=== PATIENT | male | born 1955 | race Caucasian/White ===

== ENCOUNTER 2018-12-11 07:47 | Day surgery (SDC) | payer MEDICAID ==
[2018-12-11] MEDS ORDERED: Lactated Ringers 1,000 ML IV SCH (08:15)
[2018-12-11] MEDS ORDERED: Propofol 200 MG/20 ML SDV ONE ×2 (08:52→09:49)
[2018-12-11] MEDS ORDERED: fentaNYL 100 MCG/2 ML SDV ONE (08:53)
[2018-12-11] MEDS ORDERED: Midazolam 1 MG/ML 2 ML SDV ONE (08:53)
--- NOTE | 2018-12-11 11:14 | OR ---
DATE OF PROCEDURE: 12/11/2018 PREOPERATIVE DIAGNOSES: 1. Abdominal pain. 2. Change in bowel habits. 3. Blood in stool. POSTOPERATIVE DIAGNOSES: 1. Abdominal pain. 2. Change in bowel habits. 3. Blood in stool. 4. Gastroesophageal reflux disease, mild gastritis. 5. Diverticulosis. 6. Melanosis coli. 7. Hemorrhoids. PROCEDURE: 1. Esophagogastroduodenoscopy with antral biopsies for CLOtest, sent for pathology to look for Helicobacter pylori, biopsy of gastroesophageal junction. 2. Colonoscopy to the cecum. SURGEON: Tung Sen MD ANESTHESIA: IV anesthesia with monitored anesthesia care. INDICATION: This is a 63-year-old white male who is referred for upper and lower endoscopies. Indications for these include abdominal pain, blood in stool, and change in bowel habits. I counseled him for upper and lower endoscopy with possible biopsy including risks and alternatives, and he gave his informed consent to proceed. DESCRIPTION OF PROCEDURE: The patient was placed in the left lateral decubitus position. IV anesthesia was administered by the Anesthesia Service. Time-out was held. The flexible video Olympus upper endoscope was passed through his mouth, down his esophagus and into his stomach. The scope was easily passed through the pylorus into the duodenum reaching its third portion. The scope was then slowly withdrawn examining the mucosa throughout. The duodenal mucosa appeared unremarkable. The scope was brought back through the pylorus into the antrum. There was a fine erythema here suggestive of mild gastritis. The scope was retroflexed. The proximal stomach appeared unremarkable. The scope was straightened. We obtained antral biopsies for CLOtest and for pathology to look for Helicobacter pylori. The scope was then brought up through the GE junction. This was abnormal in that the Z-line was not straight with fingers of gastric mucosa going proximally up into the esophagus. We obtained multiple totalling at least 6 biopsies of the gastroesophageal junction. The scope was then brought proximally up through the remainder of the esophagus which otherwise appeared unremarkable and it was removed. Next, a rectal exam was performed, which was unremarkable. The flexible video Olympus colonoscope was introduced through his anus, up his rectum, and out his colon all the way to the cecum. En route, we saw multiple left-sided diverticula. There was no bleeding or inflammation associated with any of them. Once the cecum was reached, the scope was slowly withdrawn examining the mucosa throughout. No additional mucosal abnormalities were noted. The scope was retroflexed in the rectum with the distal rectum showing some fairly prominent hemorrhoids, which is probably etiology of his blood in stool. The scope was straightened and removed. He tolerated the procedure well. Tung Sen MD /[id number] MTDD
== END 2018-12-11 11:45 | disposition home or self-care (01) ==
LOC: JP.SDS 07:47
PROVIDERS: ATTEND Surgery
DX: K29.71 Gastritis, unspecified, with bleeding (principal); K57.31 Diverticulosis of large intestine without perforation or abscess with bleeding; R19.4 Change in bowel habit; K21.0 Gastro-esophageal reflux disease with esophagitis; K63.89 Other specified diseases of intestine; K64.9 Unspecified hemorrhoids; F17.210 Nicotine dependence, cigarettes, uncomplicated
CPT/HCPCS: 43239; 45378; 87081; 88305; J2250; J2704; J3010; J7120

== ENCOUNTER 2020-03-30 05:58 | Day surgery (SDC) | payer MEDICAID ==
[2020-03-30] MEDS ORDERED: Propofol 200 MG/20 ML SDV ONE (07:07)
[2020-03-30] MEDS ORDERED: fentaNYL 100 MCG/2 ML SDV ONE (07:08)
[2020-03-30] MEDS ORDERED: Midazolam 1 MG/ML 2 ML SDV ONE (07:08)
[2020-03-30] MEDS ORDERED: Glycopyrrolate 0.2 MG/ML 2 ML SDV IVPUSH ONE (07:30)
[2020-03-30] MEDS ORDERED: Dextrose 5%-Lactated Ringers 1,000 ML IV SCH (07:30)
--- NOTE | 2020-04-09 12:21 | OR ---
DATE OF PROCEDURE: 03/30/2020 SURGEON: Jair Milan MD PREOPERATIVE DIAGNOSIS: History of Valenzuela's esophagus. POSTOPERATIVE DIAGNOSES: 1. History of Valenzuela's esophagus associated with a small hiatal hernia. 2. Mild diffuse gastritis. OPERATIVE PROCEDURE: Esophagogastroduodenoscopy with: 1. Biopsies of esophagogastric junction for histologic evaluation. 2. Biopsies of antrum for CLOtest. ANESTHESIA: IV sedation. INDICATION FOR PROCEDURE: This is a 64-year-old male presenting for followup upper GI endoscopy for evaluation of his Valenzuela's esophagus. Plan is to proceed with upper GI endoscopy with biopsies as indicated. Potential risks including bleeding and perforation were discussed, and the patient wishes to proceed. DETAILS OF PROCEDURE: The patient was taken to the operating room, placed in a left lateral decubitus position. IV sedation was administered after which the upper GI endoscope was passed orally through the length of esophagus into stomach with retroflexion view of the fundus and thereafter through the pyloric channel and into the junction of the third and fourth portions of the duodenum. Findings included normal hypopharynx, larynx, upper esophageal sphincter, and esophageal body. At the EG junction, there was a small roughly 1 cm hiatal hernia with some upward extension of the gastroesophageal junction mucosal line above the upper gastric folds consistent with history of Valenzuela's esophagus. There was no plaquing or stricturing and no gross evidence of neoplastic transition. Within the stomach, there was some mild diffuse redness and slight edema. Otherwise, there were no erosions or ulcers seen. Pyloric channel and visualized portions of the duodenum were unremarkable. At this point, biopsies were taken from the antrum and sent for CLOtest for H pylori, and following that, multiple biopsies were obtained from esophagogastric junction to evaluate the status of the Valenzuela's esophagus. Procedure was then concluded. There were no evident complications. Assuming that there is not a transition towards more dysplasia within the Valenzuela's esophagus, the next upper endoscopy would be in 2 years. Jair Milan MD /[id number] MTDD
== END 2020-03-30 10:36 | disposition home or self-care (01) ==
LOC: JP.SDS 05:58
PROVIDERS: ATTEND Surgery
DX: K22.70 Barrett's esophagus without dysplasia (principal); K29.70 Gastritis, unspecified, without bleeding; K44.9 Diaphragmatic hernia without obstruction or gangrene; K21.9 Gastro-esophageal reflux disease without esophagitis
CPT/HCPCS: 43239; 87081; 88305; J2250; J2704; J3010; J3490; J7121

== ENCOUNTER 2020-04-02 10:36 | Emergency (ER) | payer MEDICAID ==
[2020-04-02] MEDS ORDERED: Metoclopramide 10 MG/2 ML SDV IVPUSH ONE (11:11)
[2020-04-02] MEDS ORDERED: Sodium Chloride 0.9% 1,000 ML IV SCH ×2 (11:15→14:00)
--- NOTE | 2020-04-02 11:20 | EDM.PDOC ---
ED HPI GENERAL MEDICAL PROBLEM - General Chief Complaint: Abdominal Pain Stated Complaint: REACTION TO MEDS FROM SURGERY Time Seen by Provider: 04/02/20 10:53 Source of Information: Reports: Patient History Limitations: Reports: No Limitations - History of Present Illness INITIAL COMMENTS - FREE TEXT/NARRATIVE: 64 yo male presents with ABD pain, bloating, nausea and vomiting. 4 days ago pt had EGD, he had a normal bowel movement since then he has had increasing ABD pain with bloating and belching. He has not been able to tolerate oral intake for 48 hours. ABD pain is cramping in nature. He denies hx of ABD surgery or past bowel obstructions abdomen and kindney pain Pain Score (Numeric/FACES): 10 - Related Data Allergies Allergy/AdvReac Type Severity Reaction Status Date / Time No Known Allergies Allergy Verified 04/02/20 10:54 Home Meds: Home Meds Aspirin [Adult Aspirin] 81 mg PO DAILY 12/10/18 [History] Multivitamin [Multi-Vitamin Daily] 1 tab PO DAILY 12/10/18 [History] Saw [place] 160 mg PO DAILY 03/30/20 [History] Past Medical History HEENT History: Reports: Cataract, Retinal Detachment, Other (See Below) Other HEENT History: partial detached retina, ringing in ears Gastrointestinal History: Reports: Chronic Constipation, Colon Polyp, Hemorrhoids, Other (See Below) Other Gastrointestinal History: hx of Barretts Musculoskeletal History: Reports: Arthritis, Back Pain, Chronic, Fracture, Other (See Below) Other Musculoskeletal History: right foot fractured Neurological History: Reports: Concussion - Infectious Disease History Infectious Disease History: Reports: Chicken Pox, Measles - Past Surgical History HEENT Surgical History: Reports: Cataract Surgery GI Surgical History: Reports: Colonoscopy, EGD Neurological Surgical History: Reports: None Musculoskeletal Surgical History: Reports: Other (See Below) Other Musculoskeletal Surgeries/Procedures:: right foot surgery Social & Family History - Tobacco Use Smoking Status *Q: Current Every Day Smoker Years of Tobacco use: 35 Packs/Tins Daily: 0.2 - Caffeine Use Caffeine Use: Reports: Coffee ED ROS GENERAL - Review of Systems Review Of Systems: See Below Constitutional: Denies: Fever, Chills, Fatigue Respiratory: Denies: Shortness of Breath, Wheezing Cardiovascular: Denies: Chest Pain GI/Abdominal: Reports: Abdominal Pain : Denies: Dysuria ED EXAM, GI/ABD - Physical Exam Exam: See Below Exam Limited By: No Limitations General Appearance: Alert, WD/WN, Moderate Distress Head: Atraumatic, Normocephalic Neck: Normal Inspection, Supple, Non-Tender, Full Range of Motion. No: Lymphadenopathy (R), Lymphadenopathy (L) Respiratory/Chest: No Respiratory Distress, Lungs Clear, Normal Breath Sounds. No: Crackles, Rhonchi, Wheezing Cardiovascular: Tachycardia GI/Abdominal Exam: Distended, Tender, Abnormal Bowel Sounds Neurological: Alert, Oriented Psychiatric: Normal Affect, Normal Mood Skin Exam: Warm, Dry, Intact Course - Vital Signs Last Recorded V/S: Last Vital Signs Temp 36.7 C 04/02/20 10:58 Pulse 103 H 04/02/20 10:58 Resp 16 04/02/20 10:58 BP 177/103 H 04/02/20 10:58 Pulse Ox 95 04/02/20 10:58 - Orders/Labs/Meds Orders: Active Orders 24 hr Category Date Time Status Sodium Chloride 0.9% [Normal Saline] 1,000 ml Med 04/02/20 11:15 Active IV ASDIRECTED Sodium Chloride 0.9% [Normal Saline] 1,000 ml Med 04/02/20 14:00 Active IV ASDIRECTED Medication Orders Sodium Chloride (Normal Saline) 1,000 mls @ 500 mls/hr IV ASDIRECTED KEILY Last Admin: 04/02/20 11:24 Dose: 500 mls/hr Sodium Chloride (Normal Saline) 1,000 mls @ 999 mls/hr IV ASDIRECTED KEILY Labs: Laboratory Tests 04/02/20 04/02/20 04/02/20 Range/Units 11:21 11:21 12:48 WBC 23.3 H (4.5-11.0) K/uL RBC 5.34 (4.30-5.90) M/uL Hgb 15.9 H (12.0-15.0) g/dL Hct 47.5 (40.0-54.0) % MCV 89 (80-98) fL MCH 30 (27-31) pg MCHC 34 (32-36) % Plt Count 279 (150-400) K/uL Neut % (Auto) 84 H (36-66) % Lymph % (Auto) 7 L (24-44) % Elliott % (Auto) 9 H (2-6) % Eos % (Auto) 0 L (2-4) % Baso % (Auto) 0 (0-1) % Sodium 133 L (140-148) mmol/L Potassium 4.0 (3.6-5.2) mmol/L Chloride 98 L (100-108) mmol/L Carbon Dioxide 23 (21-32) mmol/L Anion Gap 16.0 H (5.0-14.0) mmol/L BUN 57 H (7-18) mg/dL Creatinine 3.4 H (0.8-1.3) mg/dL Est Cr Clr Drug Dosing 22.24 mL/min Estimated GFR (MDRD) 18 L (>60) Glucose 155 H (74-106) mg/dL Calcium 9.2 (8.5-10.1) mg/dL Total Bilirubin 0.9 (0.2-1.0) mg/dL AST 37 (15-37) U/L ALT 31 (12-78) U/L Alkaline Phosphatase 93 (46-116) U/L Total Protein 8.2 (6.4-8.2) g/dL Albumin 3.9 (3.4-5.0) g/dL Globulin 4.3 H (2.3-3.5) g/dL Albumin/Globulin Ratio 0.9 L (1.2-2.2) Urine Color Yellow (YELLOW) Urine Appearance Slightly cloudy A (CLEAR) Urine pH 5.5 (5.0-8.0) Ur Specific [place] 1.025 (1.008-1.030) Urine Protein Negative (NEGATIVE) mg/dL Urine Glucose (UA) Negative (NEGATIVE) mg/dL Urine Ketones Negative (NEGATIVE) mg/dL Urine Occult Blood Large H (NEGATIVE) Urine Nitrite Negative (NEGATIVE) Urine Bilirubin Negative (NEGATIVE) Urine Urobilinogen 0.2 (0.2-1.0) EU/dL Ur Leukocyte Esterase Negative (NEGATIVE) Urine RBC 20-30 H (0-5) Urine WBC 0-5 (0-5) Ur Epithelial Cells Few Amorphous Sediment Not seen Urine Bacteria Few Urine Mucus Not seen Meds: Medications Generic Name Dose Route Start Last Admin Trade Name Freq PRN Reason Stop Dose Admin Sodium Chloride 1,000 mls @ 500 mls/hr 04/02/20 11:15 04/02/20 11:24 Normal Saline IV 500 mls/hr ASDIRECTED KEILY Administration Sodium Chloride 1,000 mls @ 999 mls/hr 04/02/20 14:00 Normal Saline IV ASDIRECTED KEILY Discontinued Medications Generic Name Dose Route Start Last Admin Trade Name Stanislaw PRN Reason Stop Dose Admin Fentanyl 50 mcg 04/02/20 11:50 04/02/20 11:58 Sublimaze IVPUSH 04/02/20 11:51 50 mcg ONETIME ONE Administration Metoclopramide HCl 5 mg 04/02/20 11:11 04/02/20 11:23 Reglan IVPUSH 04/02/20 11:12 5 mg ONETIME ONE Administration - Radiology Interpretation Free Text/Narrative:: abd xray no abnormalities ct abd severe bladder distention may be associated with outlet obstruction. lott place with greater then 1 liter out put. pt greatly relieved of pain. He has no hx of CKD. He does have past issues with BPH. - Re-Assessments/Exams Free Text/Narrative Re-Assessment/Exam: 04/02/20 15:02 after 2 liters of flood and cath placement resolution of symptoms. pt will go home with lott cath in place and follow-up with primary care in 2 days for cath removal and recheck of his kidney functions Departure - Departure Time of Disposition: 15:04 Disposition: Home, Self-Care 01 Condition: Good Clinical Impression: Bladder outflow obstruction, Urinary retention, Acute kidney injury - Discharge Information *PRESCRIPTION DRUG MONITORING PROGRAM REVIEWED*: Not Applicable *COPY OF PRESCRIPTION DRUG MONITORING REPORT IN PATIENT [place]: Not Applicable Instructions: Acute Urinary Retention, Male, [id number] Referrals: Calvin Hunter NP [Primary Care Provider] - Forms: ED Department Discharge Additional Instructions: leave lott in place until follow-up in 2 days fluid intake at 1.5-2 liters per day your kidney function was impaired I believe as a result of the bladder output obstruction place this needs to be re-evaluated at your primary care visit on Friday. Sepsis Event Note - Evaluation Sepsis Screening Result: No Definite Risk - Focused Exam Vital Signs: Vital Signs Temp Pulse Resp BP Pulse Ox 04/02/20 10:58 36.7 C 103 H 16 177/103 H 95 04/02/20 10:48 36.7 C 103 H 16 177/103 H 95 Date Exam was Performed: 04/02/20 Time Exam was Performed: 14:56 - My Orders Last 24 Hours: My Active Orders 04/02/20 11:15 Sodium Chloride 0.9% [Normal Saline] 1,000 ml IV ASDIRECTED 04/02/20 14:00 Sodium Chloride 0.9% [Normal Saline] 1,000 ml IV ASDIRECTED - Assessment/Plan Last 24 Hours: My Active Orders 04/02/20 11:15 Sodium Chloride 0.9% [Normal Saline] 1,000 ml IV ASDIRECTED 04/02/20 14:00 Sodium Chloride 0.9% [Normal Saline] 1,000 ml IV ASDIRECTED
[2020-04-02] MEDS ORDERED: fentaNYL 100 MCG/2 ML SDV IVPUSH ONE (11:50)
--- NOTE | 2020-04-02 12:51 | CRLCT ---
INDICATION: Pain. TECHNIQUE: Noncontrast CT scan of the abdomen and pelvis. FINDINGS: The lung bases are unremarkable. No focal abnormalities identified in the visualized portions of the liver, spleen, pancreas, and adrenal glands. Bilateral perinephric edema. No hydronephrosis. No uroliths. Distended urinary bladder. Enlarged prostate gland. Colonic diverticulosis with no evidence of diverticulitis. The remainder of the GI tract is incompletely distended but shows no gross abnormalities. The stomach and GE junction are not well assessed. No retroperitoneal, pelvic sidewall, or mesenteric adenopathy. Atherosclerotic vascular calcifications. Degenerative changes of the spine. IMPRESSION: 1. Distended urinary bladder and bilateral perinephric edema may be due to a bladder outlet obstruction. Dictated by Joseph Monteiro MD @ 04/02/2020 12:49:47 PM Dictated by: Joseph Monteiro MD @ 04/02/2020 12:50:24 (Electronically Signed)
--- NOTE | 2020-04-02 13:09 | CRLCR ---
HISTORY: Abdominal pain. TECHNIQUE: Supine and upright frontal views of the abdomen and pelvis. COMPARISON: None. FINDINGS: Gas in nondilated small bowel and colon. No free intraperitoneal gas. No pathologic calcifications. Degenerative changes of the spine. IMPRESSION: No acute findings. Dictated by Declan Ching MD @ Apr 02 2020 1:07PM Signed by Dr. Declan Ching @ Apr 02 2020 1:08PM
== END 2020-04-02 15:27 | disposition home or self-care (01) ==
LOC: JP.ED 10:36
DX: N17.9 Acute kidney failure, unspecified (principal); N32.0 Bladder-neck obstruction; M19.90 Unspecified osteoarthritis, unspecified site; R33.9 Retention of urine, unspecified; F17.210 Nicotine dependence, cigarettes, uncomplicated; Z79.82 Long term (current) use of aspirin
CPT/HCPCS: 36415; 51702; 74019; 74150; 80053; 81001; 85025; 87086; 96361; 96374; 96375; 99284; J2765; J3010; J7030

== ENCOUNTER 2020-04-28 01:32 | Emergency (ER) | payer MEDICAID ==
--- NOTE | 2020-04-28 02:26 | EDM.PDOC ---
ED HPI GENERAL MEDICAL PROBLEM - General Chief Complaint: Genitourinary Problem Stated Complaint: CATH PROBLEMS Time Seen by Provider: 04/28/20 02:20 Source of Information: Reports: Patient History Limitations: Reports: No Limitations - History of Present Illness INITIAL COMMENTS - FREE TEXT/NARRATIVE: Patient presents with questions not about his urinary catheter but about con stipation. He has had constipation for some time and tonight was concerned about whether or not he had a blockage in his intestines. He contacted an unspecified nurse advice line who recommended that he be seen within the next couple hours because of his situation. Review of records from the [facility] show that he actually was seen earlier today for constipation and they discussed a number of options going forward. He has tried a couple of enemas at home but they have been small volume prepackaged things and he did not notice much difference. He wonders if there is something different we would do here that would help him. Constipation is been a long-term problem for him. Onset: Gradual Duration: Chronic Location: Reports: Abdomen Severity: Mild Improves with: Reports: None Worsens with: Reports: None Lower Abdomen Pain Score (Numeric/FACES): 1 - Related Data Allergies Allergy/AdvReac Type Severity Reaction Status Date / Time No Known Allergies Allergy Verified 04/28/20 02:06 Home Meds: Home Meds Aspirin [Adult Aspirin] 81 mg PO DAILY 12/10/18 [History] Multivitamin [Multi-Vitamin Daily] 1 tab PO DAILY 12/10/18 [History] Saw [place] 160 mg PO DAILY 03/30/20 [History] Tamsulosin [Tamsulosin 24 Hr] 0.4 mg PO DAILY 04/28/20 [History] Past Medical History HEENT History: Reports: Cataract, Retinal Detachment, Other (See Below) Other HEENT History: partial detached retina, ringing in ears Gastrointestinal History: Reports: Chronic Constipation, Colon Polyp, Hemorrhoids, Other (See Below) Other Gastrointestinal History: hx of Barretts Genitourinary History: Reports: Other (See Below) Other Genitourinary History: [place] catheter for 1 month Musculoskeletal History: Reports: Arthritis, Back Pain, Chronic, Fracture, Other (See Below) Other Musculoskeletal History: right foot fractured Neurological History: Reports: Concussion - Infectious Disease History Infectious Disease History: Reports: Chicken Pox - Past Surgical History HEENT Surgical History: Reports: Cataract Surgery GI Surgical History: Reports: Colonoscopy, EGD Musculoskeletal Surgical History: Reports: Other (See Below) Other Musculoskeletal Surgeries/Procedures:: right foot surgery Social & Family History - Tobacco Use Smoking Status *Q: Current Every Day Smoker Years of Tobacco use: 40 Packs/Tins Daily: 0.5 Used Tobacco, but Quit: No Second Hand Smoke Exposure: Yes - Caffeine Use Caffeine Use: Reports: Coffee - Recreational Drug Use Recreational Drug Use: No ED ROS GENERAL - Review of Systems Review Of Systems: Comprehensive ROS is negative, except as noted in HPI. ED EXAM, RENAL/ - Physical Exam Exam: See Below Exam Limited By: No Limitations General Appearance: Alert, No Apparent Distress Respiratory/Chest: No Respiratory Distress Cardiovascular: Regular Rate, Rhythm GI/Abdominal: Soft, Non-Tender Course - Vital Signs Last Recorded V/S: Last Vital Signs Temp 36.6 C 04/28/20 02:18 Pulse 86 04/28/20 02:18 Resp 16 04/28/20 02:18 BP 150/96 H 04/28/20 02:18 Pulse Ox 97 04/28/20 02:18 - Re-Assessments/Exams Free Text/Narrative Re-Assessment/Exam: 04/28/20 03:11 I discussed options for approaching his constipation. We discussed enemas and he does not seem interested in that as he believes that he does not have much stool in the descending colon at this time. He tried enema fluid at home along with a number of different positioning maneuvers to help its distribution. He has MiraLAX but is using a small scoop in water every day. He is tried mag citrate with minor results. I recommend the MiraLAX colonoscopy cleanout using 2 L of fluid and dividing the entire 238 g container of MiraLAX between the 2 bottles. He should drink 1, weight 2 hours, drink the other and wait for result s. I discussed that even once he is completely cleared out, his intestines need a month to reestablish peristalsis and that would require ensuring adequate food fiber. We also discussed briefly Power Pudding as a source of food fiber. He did not request discharge documents but walked out of the department with questions answered. Departure - Departure Time of Disposition: 02:48 Disposition: Home, Self-Care 01 Clinical Impression: Constipation Qualifiers: Constipation type: unspecified constipation type Qualified Code(s): K59.00 - Constipation, unspecified - Discharge Information Referrals: Calvin Hunter NP [Primary Care Provider] - Forms: ED Department Discharge Additional Instructions: Use the MiraLAX colonoscopy prep incorporating 2 L bottles of Gatorade or similar clear fluid and half of a 238 g container of MiraLAX powder. Drink the first bottle over 1 hour wait 2 hours and then drink the second bottle. You could look for power pudding recipes that would give you food fiber that would be tasty and keep you from getting constipated again. Enemas can also help hard stool. Ultimately, after a cleanout it takes 1 month to retrain the intestines to work the way they should. Sepsis Event Note (ED) - Evaluation Sepsis Screening Result: No Definite Risk - Focused Exam Vital Signs: Vital Signs Temp Pulse Resp BP Pulse Ox 04/28/20 02:18 36.6 C 86 16 150/96 H 97 04/28/20 01:57 36.6 C 86 16 150/96 H 97
== END 2020-04-28 02:50 | disposition home or self-care (01) ==
LOC: JP.ED 01:32
DX: K59.00 Constipation, unspecified (principal); M19.90 Unspecified osteoarthritis, unspecified site; F17.210 Nicotine dependence, cigarettes, uncomplicated; Z79.82 Long term (current) use of aspirin
CPT/HCPCS: 99283

== ENCOUNTER 2020-04-28 16:54 | Emergency (ER) | payer MEDICAID ==
--- NOTE | 2020-04-28 18:49 | EDM.PDOC ---
ED HPI GENERAL MEDICAL PROBLEM - General Chief Complaint: Gastrointestinal Problem Stated Complaint: ABDOMINAL PAIN Time Seen by Provider: 04/28/20 18:25 Source of Information: Reports: Patient History Limitations: Reports: No Limitations - History of Present Illness INITIAL COMMENTS - FREE TEXT/NARRATIVE: 64-year-old male presents to the emergency department with abdominal discomfort. He has a recent history of constipation. He is tried MiraLAX colonoscopy prep as well as a home enema without good results. He notes no vomiting. He is able to eat. Lower Abdomen Pain Score (Numeric/FACES): 2 - Related Data Allergies Allergy/AdvReac Type Severity Reaction Status Date / Time No Known Allergies Allergy Verified 04/28/20 18:47 Home Meds: Home Meds Aspirin [Adult Aspirin] 81 mg PO DAILY 12/10/18 [History] Multivitamin [Multi-Vitamin Daily] 1 tab PO DAILY 12/10/18 [History] Saw [place] 160 mg PO DAILY 03/30/20 [History] Tamsulosin [Tamsulosin 24 Hr] 0.4 mg PO DAILY 04/28/20 [History] Past Medical History HEENT History: Reports: Cataract, Retinal Detachment, Other (See Below) Other HEENT History: partial detached retina, ringing in ears Gastrointestinal History: Reports: Chronic Constipation, Colon Polyp, Hemorrhoids, Other (See Below) Other Gastrointestinal History: hx of Barretts Genitourinary History: Reports: Other (See Below) Other Genitourinary History: Crawford catheter for 1 month Musculoskeletal History: Reports: Arthritis, Back Pain, Chronic, Fracture, Other (See Below) Other Musculoskeletal History: right foot fractured Neurological History: Reports: Concussion - Infectious Disease History Infectious Disease History: Reports: Chicken Pox - Past Surgical History HEENT Surgical History: Reports: Cataract Surgery GI Surgical History: Reports: Colonoscopy, EGD Musculoskeletal Surgical History: Reports: Other (See Below) Other Musculoskeletal Surgeries/Procedures:: right foot surgery Social & Family History - Caffeine Use Caffeine Use: Reports: Coffee ED ROS GENERAL - Review of Systems Review Of Systems: See Below Constitutional: Reports: No Symptoms. Denies: Fever, Chills, Weakness GI/Abdominal: Reports: Abdominal Pain, Constipation ED EXAM, GI/ABD - Physical Exam Exam: See Below Exam Limited By: No Limitations GI/Abdominal Exam: Normal Bowel Sounds, Soft, Non-Tender, Other (General rectal exam reveals no stool in the rectal vault.) Course - Vital Signs Text/Narrative:: This patient has a large urinary bladder and a history of significant retention. He has a catheter that has been in place for a month. He presented here with complaints of constipation. He has a little stool however he has quite a bit of colonic gas. The patient will continue to use stool softeners however he should see a urologist in the near future. The patient will follow-up with his primary care provider. He will return here as needed. Last Recorded V/S: Last Vital Signs Temp 36.0 C L 04/28/20 18:54 Pulse 83 04/28/20 18:54 Resp 16 04/28/20 18:54 BP 158/97 H 04/28/20 18:54 Pulse Ox 96 04/28/20 18:54 - Orders/Labs/Meds Meds: Medications Discontinued Medications Generic Name Dose Route Start Last Admin Trade Name Freq PRN Reason Stop Dose Admin Sodium Biphosphate/Sodium Phosphate 133 ml 04/28/20 20:08 Fleet Enema RECTAL 04/28/20 20:09 ONETIME ONE Departure - Departure Time of Disposition: 21:51 Disposition: DC/Tfer W/I Hosp To Swing 61 Condition: Good Clinical Impression: Urinary retention Constipation Qualifiers: Constipation type: unspecified constipation type Qualified Code(s): K59.00 - Constipation, unspecified - Discharge Information *PRESCRIPTION DRUG MONITORING PROGRAM REVIEWED*: No *COPY OF PRESCRIPTION DRUG MONITORING REPORT IN PATIENT [place]: No Referrals: Calvin Hunter MEDICAL ASSISTING PROGRAM DIRECTOR [Primary Care Provider] - Forms: ED Department Discharge Additional Instructions: This patient has mild constipation however he has significant urinary retention. CT scan of the abdomen reveals a large bladder. He had a little stool in the ascending colon otherwise significant gas the colon. The patient had an enema and had a little watery result. He is advised to follow-up with his primary provider regarding his urinary retention. A urology consult is recommended. Patient return here as needed. Sepsis Event Note (ED) - Focused Exam Vital Signs: Vital Signs Temp Pulse Resp BP Pulse Ox 04/28/20 18:54 36.0 C L 83 16 158/97 H 96 04/28/20 18:13 36.0 C L 83 16 158/97 H 96
--- NOTE | 2020-04-28 19:12 | CRLCR ---
Indication: Constipation Technique: Upright frontal view of the abdomen Comparison: None Findings/Impression: : There are several air-fluid levels scattered throughout the abdomen. There does not appear to be a significant amount of feces. No free air or pneumatosis. Consider CT abdomen pelvis for further evaluation. Mild levoscoliosis of the lower thoracic spine. Dictated by Carissa Dai MD @ Apr 28 2020 7:11PM Signed by Dr. Carissa Dai @ Apr 28 2020 7:11PM
--- NOTE | 2020-04-28 19:54 | CRLCT ---
Abdominal distention and pain. Noncontrast CT abdomen and pelvis coronal sagittal reformat images obtained. COMPARISON: CT abdomen and pelvis 05/02/2020. Findings: Heart size is normal. No pericardial effusion. Lung bases are clear. Unenhanced liver spleen pancreas adrenal glands are unremarkable gallbladder is unremarkable. No abdominal aortic aneurysm. Kidneys are unremarkable. No hydronephrosis. Normal appendix. Diverticulosis. No bowel obstruction. Enlargement of the prostate gland which protrudes into the bladder base. There is a Crawford within the urinary bladder. Bladder is not completely distended. There is diffuse bladder wall thickening. No suspicious bony lesions. Impression: 1. No acute findings in the abdomen or pelvis. 1. Marked enlargement of the prostate gland appeared diffuse bladder wall thickening which is not completely distended. Findings may represent bladder outlet obstruction. 2. Diverticulosis Please note that all CT scans at this facility use dose modulation, iterative reconstruction, and/or weight-based dosing when appropriate to reduce radiation dose to as low as reasonably achievable. Dictated by Kim Monteiro MD @ Apr 28 2020 7:47PM Signed by Dr. Kim Monteiro @ Apr 28 2020 7:53PM
[2020-04-28] MEDS ORDERED: Sodium Phosphate,Monobasic/Sodium Phosphate,Dibasic Enema 133 ML Bottle RECTAL ONE (20:08)
== END 2020-04-28 22:06 | disposition swing bed (61) ==
LOC: JP.ED 16:54
DX: K59.00 Constipation, unspecified (principal); R33.9 Retention of urine, unspecified; Z79.82 Long term (current) use of aspirin; Z79.899 Other long term (current) drug therapy
CPT/HCPCS: 74018; 74176; 99284; A9270